=== PATIENT | female | born 1970 | race Caucasian/White ===

== ENCOUNTER 2023-01-22 17:02 | Outpatient (RCR) | payer BC, SELFPAY | END 2023-01-22 23:59 | disposition home or self-care (01) | LOC: RPT 17:02 | PROVIDERS: ATTENDING PHYSICIAN Family Medicine | DX: M54.42 Lumbago with sciatica, left side (principal); M54.41 Lumbago with sciatica, right side; M53.3 Sacrococcygeal disorders, not elsewhere classified; M76.31 Iliotibial band syndrome, right leg; M76.32 Iliotibial band syndrome, left leg | CPT/HCPCS: 97110; 97112; 97140 ==

== ENCOUNTER 2023-03-15 13:20 | Outpatient (RCR) | payer BC, SELFPAY | END 2023-03-15 23:59 | disposition home or self-care (01) | LOC: RPT 13:20 | PROVIDERS: ATTENDING PHYSICIAN Family Medicine | DX: M54.42 Lumbago with sciatica, left side (principal); M54.41 Lumbago with sciatica, right side; M53.3 Sacrococcygeal disorders, not elsewhere classified; M76.31 Iliotibial band syndrome, right leg; M76.32 Iliotibial band syndrome, left leg | CPT/HCPCS: 97110; 97112 ==

== ENCOUNTER → 2023-04-12 06:34 | Day surgery (SDC) | payer BC, SELFPAY | LOC: GI 06:34 | PROVIDERS: ATTENDING PHYSICIAN Internal Medicine Gastroenterology | DX: Z12.11 Encounter for screening for malignant neoplasm of colon (principal); K62.1 Rectal polyp; K63.5 Polyp of colon; Z80.0 Family history of malignant neoplasm of digestive organs | CPT/HCPCS: 45380; 88305 ==